=== PATIENT | male | born 1980 | race Caucasian/White ===

== ENCOUNTER 2017-01-31 10:59 | Emergency (ER) | payer SELFPAY ==
[2017-01-31] MEDS ORDERED: Lidocaine 1% PF 5 ML VIAL ONE (11:50)
== END 2017-01-31 12:31 | disposition home or self-care (01) ==
LOC: SCSER 10:59
DX: S61.211A Laceration without foreign body of left index finger without damage to nail, initial encounter (principal); F17.210 Nicotine dependence, cigarettes, uncomplicated; Z79.899 Other long term (current) drug therapy; W27.0XXA Contact with workbench tool, initial encounter; Y92.009 Unspecified place in unspecified non-institutional (private) residence as the place of occurrence of the external cause
CPT/HCPCS: 12001; J2001